=== PATIENT | male | born 1955 | race Caucasian/White ===

== ENCOUNTER 2020-09-12 13:59 | Emergency (ER) | payer SELFPAY ==
[~2020-09-12] VITALS: Ht 180.3 cm; Wt 90.3 kg
[2020-09-12] MEDS ORDERED: LISINOPRIL-HCT1 EAC2 PO ×2 (14:11→15:23)
[2020-09-12] MEDS ORDERED: ASPIRIN81 MG PO (14:11)
--- NOTE | 2020-09-12 22:38 | EKG ---
[facility] [address] [place], [place] [address] Signed Sinus rhythm with 1st degree AV block Left axis deviation Abnormal ECG No previous ECGs available Confirmed by LYUDMILA HILL MD ([id number] on 09/12/2020 10:38:32 PM Electronically Signed By: LYUDMILA HILL MD 09/12/20 2238 PATIENT NAME: KASSANDRA BHATIA ALEXANDER Electrocardiogram DATE OF : 59 PHYSICIAN: LYUDMILA HILL MD REPORT #: [id number] REPORT IS CONFIDENTIAL AND NOT TO BE RELEASED WITHOUT AUTHORIZATION
== END 2020-09-12 15:29 | disposition home or self-care (01) ==
LOC: ED 13:59
DX: R07.89 Other chest pain (principal); M54.12 Radiculopathy, cervical region; I10 Essential (primary) hypertension; Z79.899 Other long term (current) drug therapy; Z79.82 Long term (current) use of aspirin
CPT/HCPCS: 71045; 80053; 83735; 84484; 85025; 93005; 93010; 99285-25